=== PATIENT | female | born 1985 | race Caucasian/White ===

== ENCOUNTER 2017-02-05 14:49 | Emergency (ER) | payer OTHER ==
[~2017-02-05] VITALS: Ht 172.7 cm; Wt 113.4 kg
[2017-02-05] MEDS ORDERED: AMOX500T2 PO (15:18)
[2017-02-05] MEDS ORDERED: IBUP-2055 PO (15:18)
[2017-02-05] MEDS ORDERED: IBUPROFEN 800 MG (MOTRIN) TAB PO STA (15:29)
[2017-02-05] MEDS ORDERED: FLUCONAZOLE 150 MG TABLET (ED ONLY) PO STA (15:29)
[2017-02-05] MEDS ORDERED: cefTRIAXone 1 GM (ROCEPHIN) VIAL IM ONE (15:30)
[2017-02-05] MEDS ORDERED: LIDOCAINE 1% INJ 20 ML (XYLOCAINE) VIAL INJ ONE (15:30)
[2017-02-05] MEDS ORDERED: TRAM50TA2 PO (15:33)
[2017-02-05] MEDS ORDERED: FLUC100T6 PO (15:33)
[2017-02-05] MEDS ORDERED: CEFD300C3 PO (15:33)
[2017-02-05] MEDS ORDERED: NYST1000 PO (15:33)
--- NOTE | 2017-02-05 15:34 | ED EENT ---
History of Present Illness General Chief Complaint: Oral/Throat Problems Stated Complaint: STREP THROAT Nursing Triage Note: Ambulatory to ED 4 with reports of sore throat. Patient was seen at [facility] on Wednesday and diagnosed with strep, has been taking Amoxil and reports not feeling any better. Source: patient Exam Limitations: no limitations History of Present Illness Time seen by provider: 15:20 Initial Comments 31-year-old female patient presents to the emergency department complaints of sore throat. Was seen on Wednesday by [facility] and put on amoxicillin 500 mg twice a day for 7 days. Denies improvement in symptoms. Reports she is now having low-grade fevers and poor appetite. Timing/Duration: gradual Location: throat Prearrival Treatment: over the counter meds (400 mg motrin at 1100 today.) Modifying Factors: Worse With Other (worse with swallowing.) Allergies and Home Medications Allergies Coded Allergies: No Known Drug Allergies (Unverified , 02/05/17) Home Medications Amoxicillin 500 Mg Tablet, 500 MG PO BID for 7 Days, (Reported) Cefdinir 300 Mg Capsule, 300 MG PO BID, #14 Ref 0 Prescribed by: MARTELL SINGH on 02/05/17 1533 Fluconazole 100 Mg Tablet, 100 MG PO DAILY, #10 Ref 0 Prescribed by: MARTELL SINGH on 02/05/17 1533 Ibuprofen 200 Mg Tablet, 400 MG PO Q6H PRN for pain or fever, (Reported) Nystatin 100,000 Unit/1 Ml Oral.susp, 5 ML PO QID, #200 Ref 0 Prescribed by: MARTELL SINGH on 02/05/17 1533 Tramadol HCl 50 Mg Tablet, 50 MG PO Q4H PRN for pain, #14 Ref 0 Prescribed by: MARTELL SINGH on 02/05/17 1533 Review of Systems Constitutional: chills, fever, malaise Eyes: No Symptoms Reported Ears: No Symptoms Reported Nose: no symptoms reported Mouth: pain (tongue pain.), denies swelling Throat: see HPI, pain, swelling, denies neck stiffness, denies hoarse, denies aphonia, denies muffled, painful swallowing, denies difficulty with fluids Respiratory: no symptoms reported Cardiovascular: no symptoms reported Gastrointestinal: no symptoms reported Musculoskeletal: no symptoms reported Skin: no symptoms reported Neurological: No Symptoms Reported All Other Systems Reviewed Negative Unless Noted: Yes (Negative excepted noted.) Past Kxfkzpb-Qwrozn-Lsitpm Hx Patient Social History Alcohol Use: Denies Use Recreational Drug Use: No Smoking Status: Current Everyday Smoker Type Used: Cigarettes 2nd Hand Smoke Exposure: Yes Recent Foreign Travel: No Contact w/Someone Who Travel: No Recent Infectious Disease Expo: No Recent Hopitalizations: No Immunizations Up To Date Tetanus Booster (TDap): Less than 5yrs PED Vaccines UTD: Yes Seasonal Allergies Seasonal Allergies: No Surgeries HX Surgeries: Yes Surgeries: Section Respiratory Hx Respiratory Disorders: No Cardiovascular Hx Cardiac Disorders: No Neurological Hx Neurological Disorders: No Gastrointestinal Hx Gastrointestinal Disorders: No HEENT HX ENT Disorders: No Reviewed Nursing Assessment Reviewed/Agree w Nursing PMH: Yes Family Medical History Significant Family History: No Pertinent Family Hx Physical Exam Vital Signs Vital Sign - Last 12Hours 02/05/17 15:12 Temp 100.3 Pulse 99 Resp 16 B/P (MAP) 115/78 Pulse Ox 99 O2 Delivery Room Air General Appearance: WD/WN, no apparent distress Eyes: bilateral eye EOMI, bilateral eye PERRL, bilateral eye normal inspection Ears: bilateral ear TM normal, bilateral ear auricle normal, bilateral ear canal normal Nose: normal inspection Mouth/Throat: tonsillar exudate, tonsillar swelling, No trismus, No uvula swelling, No voice changes, other ((+) pharyngeal erythema. (+) candidiasis.) Neck: full range of motion, supple, lymphadenopathy (R) (ttp), lymphadenopathy (L) (ttp) Cardiovascular: regular rate, rhythm, no murmur Respiratory: lungs clear, normal breath sounds, no respiratory distress Neurologic/Psychiatric: alert, normal mood/affect, oriented x 3 Skin: normal color, warm/dry Progress/Results/Core Measures Results/Orders My Orders Orders - MARTELL SINGH Ceftriaxone Injection (Rocephin Injectio (02/05/17 15:30) Fluconazole Tablet (Ed Only) (Diflucan T (02/05/17 15:29) Ibuprofen Tablet (Motrin Tablet) (02/05/17 15:29) Lidocaine 1% Injection (Xylocaine 1% Inj (02/05/17 15:30) Medications Given in ED Current Medications Medications Dose Ordered Sig/Ricky Route Start Time Stop Time Status Last Admin Dose Admin Ceftriaxone Sodium 1,000 mg ONCE ONCE IM 02/05/17 15:30 02/05/17 15:31 DC 02/05/17 15:43 1,000 MG Lidocaine HCl 2.1 ml ONCE ONCE INJ 02/05/17 15:30 02/05/17 15:31 DC 02/05/17 15:43 2.1 ML Vital Signs/I&O Vital Sign - Last 12Hours 02/05/17 02/05/17 02/05/17 02/05/17 15:12 15:43 15:43 15:44 Temp 100.3 100.3 100.3 100.3 Pulse 99 Resp 16 B/P (MAP) 115/78 Pulse Ox 99 O2 Delivery Room Air Blood Pressure Mean: 90 Departure Communication Progress Notes Patient seen and evaluated. Patient given 1 g Rocephin, ibuprofen 800 mg, and Diflucan 300 mg in the ED. Patient instructed to discontinue the amoxicillin. Given prescriptions for nystatin swish and swallow, Omnicef, and tramadol for pain. Patient does report decreased infections with antibiotic use. She given a prescription for Diflucan. Impression Impression: Primary Impression: Streptococcal tonsillitis Additional Impression: Thrush, oral Disposition: 01 HOME, SELF-CARE Condition: Improved Departure-Patient Inst. Decision time for Depature: 15:30 Referrals: [facility] (PCP/Family) Primary Care Physician Patient Instructions: Strep Throat (DC), Thrush (DC) Add. Discharge Instructions: All discharge instructions reviewed with patient and/or family. Voiced understanding. Medications as instructed. Tylenol extra strength over-the- counter as directed for pain or fever. Ibuprofen 800 mg by mouth every 8 hours as needed for pain or fever. Push fluids. Warm salt water gargles. Follow-up with your family practitioner for recheck if needed. Return to the emergency department for worsened pain, swelling, difficulty swallowing, difficulty breathing, fever, or any other concerns. Scripts Fluconazole (Fluconazole) 100 Mg Tablet 100 MG PO DAILY, #10 TAB 0 Refills Prov: MARTELL SINGH 02/05/17 Nystatin (Nystatin) 100,000 Unit/1 Ml Oral.susp 5 ML PO QID, #200 ML 0 Refills Prov: MARTELL SINGH 02/05/17 Cefdinir (Cefdinir) 300 Mg Capsule 300 MG PO BID, #14 CAP 0 Refills Prov: MARTELL SINGH 02/05/17 Tramadol HCl (Tramadol HCl) 50 Mg Tablet 50 MG PO Q4H Y for pain, #14 TAB 0 Refills Prov: MARTELL SINGH 02/05/17 Work/School Note: Work Release Form Date Seen in the Emergency Department: February 05, 2017 Return to Work: February 06, 2017 Restrictions: Return-No Fever (24hrs) Copy Copies To 1: IRENE MENDES GRETCHEN L PA February 05, 2017 15:34
[2017-02-05 16:01] VITALS: BP 119/74
== END 2017-02-05 16:01 | disposition home or self-care (01) ==
LOC: ER 14:52
DX: J03.00 Acute streptococcal tonsillitis, unspecified (principal); B37.0 Candidal stomatitis; F17.210 Nicotine dependence, cigarettes, uncomplicated
CPT/HCPCS: 96372; 99282

== ENCOUNTER → 2019-06-08 | Outpatient (CLI) | payer OTHER ==
[~2019-06-08] MED LIST: AMOX500T2 PO; CEFD300C3 PO; FLUC100T6 PO; IBUP-2055 PO; NYST1000 PO; TRAM50TA2 PO
--- NOTE | 2019-06-08 16:30 | Diagnostic Imaging Report ---
INDICATION: Right shoulder pain. TIME OF EXAM: 1:35 p.m. FINDINGS: Three views of the right shoulder were obtained. Glenohumeral and acromioclavicular alignment is normal. Acromiohumeral space is normal. No fracture or dislocation is seen. IMPRESSION: No acute bony abnormality is detected. Dictated by: Dictated on workstation # [id number]
== END ==
LOC: RAD 12:43
PROVIDERS: ATTEND Nurse Practitioner Family
DX: M25.511 Pain in right shoulder (principal)
CPT/HCPCS: 73030

== ENCOUNTER → 2019-07-13 | Outpatient (CLI) | payer OTHER ==
--- NOTE | 2019-07-13 09:32 | Diagnostic Imaging Report ---
PROCEDURE: MRI right joint upper extremity without contrast. TECHNIQUE: Multiplanar, multisequence non contrast-enhanced MRI of the right upper extremity was accomplished. INDICATION: Right shoulder pain. COMPARISON: No prior MRI shoulder studies are available for comparison. FINDINGS: The biceps tendon is in a normal location within the bicipital groove. There are hypertrophic degenerative changes at the acromioclavicular joint. There is some edema in the acromion and distal clavicle. A small amount of fluid is identified within the subacromial-subdeltoid bursa. The subscapularis tendon of the rotator cuff is intact. The supraspinatus and infraspinatus tendons of the rotator cuff are intact. No definite tear or retraction is seen. There is a moderate amount of intermediate signal throughout the substance of the supraspinatus tendon consistent with tendinopathy. No joint effusion is identified. IMPRESSION: AC joint degenerative changes and rotator cuff tendinopathy. No definite rotator cuff tear is seen. There is also a small amount of fluid in the subacromial-subdeltoid bursa suggestive of mild bursitis. Dictated by: Dictated on workstation # [id number]
== END ==
LOC: RAD 08:03
PROVIDERS: ATTEND Family Medicine
DX: M19.012 Primary osteoarthritis, left shoulder (principal); M67.814 Other specified disorders of tendon, left shoulder
CPT/HCPCS: 73221

== ENCOUNTER 2020-07-22 09:26 | Emergency (ER) | payer OTHER ==
[~2020-07-22] VITALS: Ht 172.7 cm; Wt 118.8 kg
[~2020-07-22 09:26] MED LIST changes: -IBUP-2055 PO; +IBUP-2473 PO; -TRAM50TA2 PO; +TRM50T PO
[2020-07-22 09:48] LABS: BASOPHILS # (AUTO) 0.1 10^3/uL (0.0-0.1); BASOPHILS % (AUTO) 0 % (0-10); EOSINOPHILS % (AUTO) 0 % (0-10); HEMATOCRIT 43 % (35-52); HEMOGLOBIN 14.3 g/dL (11.5-16.0); LYMPHOCYTES # (AUTO) 2.9 10^3/uL (1.0-4.0); LYMPHOCYTES % (AUTO) 21 % (12-44); MEAN CORPUSCULAR HEMOGLOBIN 31 pg (25-34); MEAN CORPUSCULAR HGB CONC 33 g/dL (32-36); MEAN CORPUSCULAR VOLUME 94 fL (80-99); MEAN PLATELET VOLUME 8.8 fL (9.0-12.2); MONOCYTES # (AUTO) 0.9 10^3/uL (0.0-1.0); MONOCYTES % (AUTO) 6 % (0-12); NEUTROPHILS % (AUTO) 72 % (42-75); PLATELET COUNT 292 10^3/uL (130-400); WHITE BLOOD COUNT 13.8 10^3/uL (4.3-11.0)
[2020-07-22 10:06] LABS: FIBRIN DEGRADATION PRODUCTS 0.36 UG/ML (0.00-0.49); INR 0.9 (0.8-1.4); PROTHROMBIN TIME PATIENT 12.6 SEC (12.2-14.7)
[2020-07-22 10:09] LABS: CHLORIDE 108 MMOL/L (98-107); POTASSIUM 4.3 MMOL/L (3.6-5.0); SODIUM 139 MMOL/L (135-145)
[2020-07-22 10:10] LABS: CALCIUM 8.9 MG/DL (8.5-10.1)
[2020-07-22 10:11] LABS: GLUCOSE 98 MG/DL (70-105)
[2020-07-22 10:12] LABS: CARBON DIOXIDE 22 MMOL/L (21-32)
[2020-07-22 10:13] LABS: BILIRUBIN,TOTAL 0.4 MG/DL (0.1-1.0)
[2020-07-22 10:15] LABS: ALKALINE PHOSPHATASE 61 U/L (40-136); GFR ESTIMATED > 60
[2020-07-22 10:16] LABS: BUN/CREATININE RATIO 17
[2020-07-22 10:18] LABS: ALANINE AMINOTRANSFERASE 12 U/L (0-55)
[2020-07-22 10:19] LABS: BILIRUBIN,URINE NEGATIVE (NEGATIVE); CLARITY,URINE CLEAR; COLOR,URINE YELLOW; GLUCOSE, URINE (UA) NEGATIVE (NEGATIVE); KETONES,URINE NEGATIVE (NEGATIVE); LEUKOCYTE ESTERASE ,URINE NEGATIVE (NEGATIVE); NITRITE,URINE NEGATIVE (NEGATIVE); PROTEIN,URINE NEGATIVE (NEGATIVE)
--- NOTE | 2020-07-22 10:25 | Diagnostic Imaging Report ---
Indication: Right upper extremity weakness and facial droop Single AP view of the chest is obtained. COMPARISON: No previous study is available for comparison at this time. FINDINGS: Heart size and pulmonary vasculature are within normal limits, and the lungs are clear, bilaterally. IMPRESSION: Unremarkable chest. Dictated by: Dictated on workstation # [id number]
[2020-07-22 10:27] LABS: BACTERIA,URINE TRACE /HPF; WBC,URINE RARE /HPF
--- NOTE | 2020-07-22 10:27 | Diagnostic Imaging Report ---
PROCEDURE: CT head wo r/o stroke. TECHNIQUE: Multiple contiguous axial images were obtained through the brain without the use of intravenous contrast. Auto Exposure Controls were utilized during the CT exam to meet ALARA standards for radiation dose reduction. INDICATION: Right facial droop with right upper extremity paresthesia and dizziness CT HEAD: CT images of the head were obtained. FINDINGS: Ventricles and sulci are within normal limits for size. There is no intracranial hemorrhage identified. There is no abnormal mass effect or shift of midline structures. IMPRESSION: Unremarkable CT of the head. Dictated by: Dictated on workstation # [id number]
[2020-07-22 10:33] LABS: AMPHETAMINE SCREEN, URINE NEGATIVE (NEGATIVE); BARBITURATE SCREEN URINE NEGATIVE (NEGATIVE); BENZODIAZEPINES SCREEN URINE NEGATIVE (NEGATIVE); CANNABINOID SCREEN, URINE POSITIVE (NEGATIVE); COCAINE SCREEN URINE NEGATIVE (NEGATIVE); METHADONE STAT NEGATIVE (NEGATIVE); METHAMPHETAMINE SCREEN URINE S NEGATIVE (NEGATIVE); OPIATE SCREEN URINE NEGATIVE (NEGATIVE); OXYCODONE STAT NEGATIVE (NEGATIVE); PROPOXYPHENE STAT NEGATIVE (NEGATIVE); TRICYCLIC ANTIDEPRESSANTS SCRE NEGATIVE (NEGATIVE)
[2020-07-22 10:39] LABS: TSH (THYROID ANALYZER) 1.26 UIU/ML (0.35-4.94)
[2020-07-22] MEDS ORDERED: NS 100 ML (IVPB) BAG IV ONE (10:45)
[2020-07-22] MEDS ORDERED: HOLD METFORMIN - RECEIVED CONTRAST 20 ML VIAL IV SCH (10:45)
[2020-07-22] MEDS ORDERED: IOHEXOL 350 MG/ML 100 ML (OMNIPAQUE 350) VIAL IV ONE (10:45)
--- NOTE | 2020-07-22 11:12 | Diagnostic Imaging Report ---
PROCEDURE: CT angiography of the head and CT angiography of the neck with and without contrast. TECHNIQUE: Contiguous noncontrast images were obtained from the skull base through the vertex. After intravenous contrast administration, helical CT angiography of the neck was performed. Source data was reformatted into 3D MIP projections. Delayed post contrast acquisition was also obtained. Auto Exposure Controls were utilized during the CT exam to meet ALARA standards for radiation dose reduction. INDICATION: Right facial droop. FINDINGS: The delayed post contrast images through the brain are without abnormal enhancing lesion. The CT angiographic portion of the exam demonstrates a three-vessel branching pattern to the aortic arch. Both common carotid arteries are widely patent. The carotid bifurcations are unremarkable. The internal carotid arteries appear to be widely patent. The M1 and M2 branches of the middle cerebral arteries appear to be widely patent. No filling defect or thromboembolism is detected. The bilateral anterior cerebral arteries appear to be patent. The bilateral posterior cerebral arteries appear patent. The basilar is unremarkable. The vertebral arteries are codominant. No stenosis or occlusion is detected. IMPRESSION: Unremarkable CT angiogram of the head and neck. No definite filling defect or large branch occlusion is identified. Dictated by: Dictated on workstation # [id number]
--- NOTE | 2020-07-22 11:24 | ED Neurological Problem ---
General Chief Complaint: Neurological Problems Stated Complaint: STROKE LIKE SYMPTOMS Nursing Triage Note: PT TO ROOM 02 VIA W/C WITH C/O RIGHT HAND WEAKNESS AND RIGHT SIDE FACIAL DROOP STARTING YESTERDAY MORNING. PT SENT OVER FROM PCP. PT REPORTS HAVING FLUID BEHIND THE EAR LAST WEEK. Nursing Sepsis Screen: No Definite Risk Source: patient History of Present Illness Date Seen by Provider: Jul 22, 2020 Time Seen by Provider: 09:34 Initial Comments PT ARRIVES VIA POV--STATES SHE WAS SENT HER BY DR. GREGG STATES SHE WOKE UP YESTERDAY MORNING WITH RIGHT SIDED FACIAL DROOP STATES RIGHT SIDE OF FACE FEELS NUMB, DOES THE RIGHT POSTERIOR ASPECT OF HER TONGUE HAS HAD PAIN TO RIGHT TMJ AREA, TO RIGHT POST-AURICULAR AREA AND IN RIGHT EAR. NO CHANGE IN HEARING THOUGHT MAYBE HER RIGHT HAND FELT A LITTLE WEAK, BUT NOT NOW. NO PARESTHESIAS TO HAND NO VISION CHANGE NO HEADACHE NO NAUSEA/VOMITING NO FACIAL PAIN NO PROBLEMS TALKING NO DIZZINESS NO FEVER OR RECENT ILLNESS WAS SEEN BY DR. 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 NO INJURY STATES STORE HAS BEEN CLOSED FOR 4 WEEKS FOR REMODELING, AND RE-OPENED YESTERDAY PCP: DR. GREGG Allergies and Home Medications Allergies Coded Allergies: No Known Drug Allergies (Unverified , 02/05/17) Home Medications Amoxicillin 500 Mg Tablet, 500 MG PO BID, (Reported) Cefdinir 300 Mg Capsule, 300 MG PO BID Prescribed by: MARTELL SINGH on 02/05/17 153 Fluconazole 100 Mg Tablet, 100 MG PO DAILY Prescribed by: MARTELL SINGH on 02/05/17 153 Ibuprofen 200 Mg Tablet, 400 MG PO Q6H PRN for pain or fever, (Reported) Nystatin 100,000 Unit/1 Ml Oral.susp, 5 ML PO QID Prescribed by: MARTELL SINGH on 02/05/17 153 Prednisone 10 Mg Tab.ds.pk, 10 MG PO DAILY Take 6 tabs(60mg)daily,decrease by 1 tab(10MG)daily. Prescribed by: CRUZ FLOOD on 07/22/20 1129 Tramadol HCl 50 Mg Tablet, 50 MG PO Q4H PRN for pain Prescribed by: MARTELL SINGH on 02/05/17 1533 Valacyclovir HCl 1,000 Mg Tablet, 1,000 MG PO TIDAC Prescribed by: CRUZ FLOOD on 07/22/20 1129 Patient Home Medication List Home Medication List Reviewed: Yes Review of Systems Review of Systems Constitutional: no symptoms reported; No chills, No diaphoresis, No dizziness, No fever, No malaise, No weakness Eyes: No Symptoms Reported; Denies Blurred Vision Ears, Nose, Mouth, Throat: see HPI, ear pain; denies throat pain, denies throat swelling Respiratory: no symptoms reported Cardiovascular: no symptoms reported Gastrointestinal: no symptoms reported Genitourinary: no symptoms reported LMP: Jun 21, 2020 Musculoskeletal: No back pain, No neck pain Skin: no symptoms reported; No rash Psychiatric/Neurological: See HPI; Denies Cognitive Dysfunction, Denies Headache; Numbness, Weakness Endocrine: No Symptoms Reported Hematologic/Lymphatic: No Symptoms Reported Past Uczbwjx-Upxtyq-Dawiea Hx Past Med/Social Hx: Reviewed and Corrections made Patient Social History Alcohol Use: Occasionally Uses Alcohol Beverage of Choice: Beer Recreational Drug Use: Yes (THC) Drug of Choice: THC Smoking Status: Current Everyday Smoker (1 PPD) Type Used: Cigarettes (1 PPD) 2nd Hand Smoke Exposure: Yes Recent Foreign Travel: No Contact w/Someone Who Travel: No Recent Infectious Disease Expo: No Recent Hopitalizations: No Physical Abuse: No Sexual Abuse: No Mistreated: No Fear: No Immunizations Up To Date Tetanus Booster (TDap): Less than 5yrs PED Vaccines UTD: Yes Seasonal Allergies Seasonal Allergies: No Past Medical History Surgeries: Yes ( X 2--LAST ONE 2007) Section Respiratory: No Cardiac: Yes High Cholesterol Neurological: No Reproductive Disorders: Yes (IRREGULAR PERIODS) Female Reproductive Disorders: Menstrual Problems Genitourinary: No Gastrointestinal: No Musculoskeletal: No Endocrine: No HEENT: No Cancer: No Psychosocial: No Integumentary: No Blood Disorders: No Family Medical History No Pertinent Family Hx Physical Exam Vital Signs Vital Signs - First Documented 07/22/20 07/22/20 09:30 11:34 Temp 36.3 Pulse 73 Resp 18 B/P (MAP) 144/94 (111) Pulse Ox 98 O2 Delivery Room Air Capillary Refill : Less Than 3 Seconds Height, Weight, BMI Height: 5'8.00" Weight: 250lbs. oz. 113.372063de; 39.00 BMI Method:Stated General Appearance: WD/WN, no apparent distress, other (SPEECH CLEAR AND GAIT STEADY) HEENT: PERRL/EOMI, TMs normal, pharynx normal Neck: non-tender, full range of motion, supple, normal inspection Respiratory: normal breath sounds, no respiratory distress, no accessory muscle use Cardiovascular: regular rate, rhythm Peripheral Pulses: 2+ Dorsalis Pedis (R), 2+ Left Dors-Pedis (L), 2+ Radial Pulses (R), 2+ Radial Pulses (L) Gastrointestinal: normal bowel sounds, non tender, soft Back: normal inspection Extremities: normal inspection, normal capillary refill Neurologic/Psychiatric: alert, normal mood/affect, oriented x 3; No aphasia; facial droop (RIGHT FACIAL DROOP, WITH FOREHEAD INVOLVEMENT. PT IS ABLE TO CLOSE RIGHT EYE AND NO EXCESSIVE TEARING. . TONGUE IS MIDLINE. DOES HAVE SOME SENSATION TO TOUCH TO RIGHT SIDE OF FACE. ) Crainal Nerves: normal hearing, normal speech, PERRL Coordination/Gait: normal finger to nose, normal gait, negative Romberg's sign Motor/Sensory: no pronator drift Skin: normal color, warm/dry; No rash Stroke Onset of Symptoms Symptoms onset unknown: Yes NIH Stroke Scale Assessment Select: Initial Level of Consciousness: 0=Alert (0), Level of Consciousness- Questions: 0=Answers both month/age (0), LOC Commands: 0=Performs both tasks (0), Gaze: Normal (0), Visual Marcano: 0=No visual loss (0), Facial Movement (Facial Paresis): 3=Complete paralysis (3), Motor Function-Arms Right: 0=No drift (0), Motor Function-Arms Left: 0=No drift (0), Motor Function-Legs Right: 0=No drift (0), Motor Function-Legs Left: 0=No drift (0), Limb Ataxia: 0=Absent (0), Sensory: 0=Normal:no loss (0), Best Language: 0=No aphasia (0), Dysarthria: 0=Normal (0), Extinction & Inattention: 0=No abnormality (0), Total: 3 Stroke Thrombolytic Exclusion Age 18 or Over: Yes Acute intenal hemorrhage: No History of CVA: No Uncontrolled Coagulation Defec: No Intracranial Hemorrhage: No Severe Hypertension: No GI or Bleed: No Subarachnoid Hemorrhage: No Intracranial Neoplasm/Aneurysm: No Oral Anticoagulants: No Surgery or Trauma: No Puncture of Non-Compressible V: No Recent CPR: No Diabetic Hemorrhagic Retinopat: No Organ Biopsy: No Recent Obstetric Delivery: No Glucose: No Significant Hepatic Dysfunctio: No NIH Stoke Scale >22: No Bacterial Endocarditis: No Pericarditis: No Improving Symptoms: No Platelets: No TPA Contraindication: No IV - TPa Received IV - TPa Procedure Performed?: No (NIH IS 3 AND SYMPTOMS ONGOING FOR > 24 HOURS AND APPEARS TO BE SALVADOR'S PALSY-NOT CVA) Progress/Results/Core Measures Results/Orders Lab Results Laboratory Tests Test 07/22/20 09:37 07/22/20 09:40 07/22/20 10:13 Range/Units Glucometer 96 70-110 MG/DL White Blood Count 13.8 H 4.3-11.0 10^3/uL Red Blood Count 4.58 3.80-5.11 10^6/uL Hemoglobin 14.3 11.5-16.0 g/dL Hematocrit 43 35-52 % Mean Corpuscular Volume 94 80-99 fL Mean Corpuscular Hemoglobin 31 25-34 pg Mean Corpuscular Hemoglobin Concent 33 32-36 g/dL Red Cell Distribution Width 13.6 10.0-14.5 % Platelet Count 292 130-400 10^3/uL Mean Platelet Volume 8.8 L 9.0-12.2 fL Immature Granulocyte % (Auto) 1 % Neutrophils (%) (Auto) 72 42-75 % Lymphocytes (%) (Auto) 21 12-44 % Monocytes (%) (Auto) 6 0-12 % Eosinophils (%) (Auto) 0 0-10 % Basophils (%) (Auto) 0 0-10 % Neutrophils # (Auto) 10.0 H 1.8-7.8 10^3/uL Lymphocytes # (Auto) 2.9 1.0-4.0 10^3/uL Monocytes # (Auto) 0.9 0.0-1.0 10^3/uL Eosinophils # (Auto) 0.0 0.0-0.3 10^3/uL Basophils # (Auto) 0.1 0.0-0.1 10^3/uL Immature Granulocyte # (Auto) 0.1 0.0-0.1 10^3/uL Prothrombin Time 12.6 12.2-14.7 SEC INR Comment 0.9 0.8-1.4 Activated Partial Thromboplast Time 32 24-35 SEC D-Dimer 0.36 0.00-0.49 UG/ML Sodium Level 139 135-145 MMOL/L Potassium Level 4.3 3.6-5.0 MMOL/L Chloride Level 108 H 98-107 MMOL/L Carbon Dioxide Level 22 21-32 MMOL/L Anion Gap 9 5-14 MMOL/L Blood Urea Nitrogen 10 7-18 MG/DL Creatinine 0.60 0.60-1.30 MG/DL Estimat Glomerular Filtration Rate > 60 BUN/Creatinine Ratio 17 Glucose Level 98 70-105 MG/DL Calcium Level 8.9 8.5-10.1 MG/DL Corrected Calcium 8.9 8.5-10.1 MG/DL Magnesium Level 2.0 1.6-2.4 MG/DL Total Bilirubin 0.4 0.1-1.0 MG/DL Aspartate Amino Transf (AST/SGOT) 13 5-34 U/L Alanine Aminotransferase (ALT/SGPT) 12 0-55 U/L Alkaline Phosphatase 61 40-136 U/L Myoglobin 25.9 10.0-92.0 NG/ML Troponin I < 0.028 <0.028 NG/ML Total Protein 7.0 6.4-8.2 GM/DL Albumin 4.0 3.2-4.5 GM/DL TSH [place] Testing 1.26 0.35-4.94 UIU/ML Serum Test, Qualitative NEGATIVE NEGATIVE Serum Alcohol < 10 <10 MG/DL Urine Color YELLOW Urine Clarity CLEAR Urine pH 6.0 5-9 Urine Specific [place] 1.015 L 1.016-1.022 Urine Protein NEGATIVE NEGATIVE Urine Glucose (UA) NEGATIVE NEGATIVE Urine Ketones NEGATIVE NEGATIVE Urine Nitrite NEGATIVE NEGATIVE Urine Bilirubin NEGATIVE NEGATIVE Urine Urobilinogen 0.2 < = 1.0 MG/DL Urine Leukocyte Esterase NEGATIVE NEGATIVE Urine RBC (Auto) NEGATIVE NEGATIVE Urine RBC NONE /HPF Urine WBC RARE /HPF Urine Squamous Epithelial Cells 5-10 /HPF Urine Crystals NONE /LPF Urine Bacteria TRACE /HPF Urine Casts NONE /LPF Urine Mucus NEGATIVE /LPF Urine Culture Indicated NO Urine Opiates Screen NEGATIVE NEGATIVE Urine Oxycodone Screen NEGATIVE NEGATIVE Urine Methadone Screen NEGATIVE NEGATIVE Urine Propoxyphene Screen NEGATIVE NEGATIVE Urine Barbiturates Screen NEGATIVE NEGATIVE Ur Tricyclic Antidepressants Screen NEGATIVE NEGATIVE Urine Phencyclidine Screen NEGATIVE NEGATIVE Urine Amphetamines Screen NEGATIVE NEGATIVE Urine Methamphetamines Screen NEGATIVE NEGATIVE Urine Benzodiazepines Screen NEGATIVE NEGATIVE Urine Cocaine Screen NEGATIVE NEGATIVE Urine Cannabinoids Screen POSITIVE H NEGATIVE My Orders Orders - ALEENARONALDO BernabeA Pradip DO Cbc With Automated Diff (07/22/20:38) Protime With Inr (07/22/20:38) Partial Thromboplastin Time (07/22/20:38) Comprehensive Metabolic Panel (07/22/20:) Fibrin Degradation Products (07/22/20:38) Troponin I (07/22/20:) Hcg,Qualitative Serum (07/22/20:38) Ua Culture If Indicated (07/22/20:38) Chest 1 View, Ap/Pa Only (07/22/20:38) Ekg Tracing (07/22/20:38) Accucheck Stat ONCE (07/22/20 09:38) Ed Iv/Invasive Line Start (07/22/20:38) Ed Iv/Invasive Line Start (07/22/20:38) Vital Signs Stroke Patient Q15M (07/22/20 09:38) Ct Head Wo-R/O Stroke (07/22/20 09:38) O2 (07/22/20:38) Intake & Output 06,14,22 (07/22/20:38) Monitor-Rhythm Ecg Trace Only (07/22/20:38) Dysphagia Screening Tool (07/22/20 09:38) Alcohol (07/22/20 09:38) Drug Screen Stat (Urine) (07/22/20:38) Magnesium (07/22/20:38) Thyroid Analyzer (07/22/20:38) Myoglobin Serum (07/22/20 09:38) Ct Angio Head/Neck (07/22/20 10:35) Iohexol Injection (Omnipaque 350 Mg/Ml 1 (07/22/20 10:45) Received Contrast (Hold Metformin- Contr (07/22/20 10:45) Ns (Ivpb) (Sodium Chloride 0.9% Ivpb Bag (07/22/20 10:45) Medications Given in ED Current Medications Medications Dose Ordered Sig/Ricky Route Start Time Stop Time Status Last Admin Dose Admin Iohexol 100 ml ONCE ONCE IV 07/22/20 10:45 07/22/20 10:46 DC 07/22/20 11:01 75 ML Sodium Chloride 100 ml ONCE ONCE IV 07/22/20 10:45 07/22/20 10:46 DC 07/22/20 11:01 80 ML Vital Signs/I&O 07/22/20 07/22/20 09:30 11:34 Temp 36.3 Pulse 73 64 Resp 18 17 B/P (MAP) 144/94 (111) 153/103 Pulse Ox 98 O2 Delivery Room Air Room Air Blood Pressure Mean: 111 FSBG Bedside Testing Finger Stick Blood Glucose: 96 Blood Glucose Action Taken: PROVIDER NOTIFIED Progress Progress Note : Progress Note NO DETERIORATION IN PT'S CONDITION DURING ER STAY Initial ECG Impression Date: Jul 22, 2020 Initial ECG Impression Time: 09:32 Initial ECG Rate: 68 Initial ECG Rhythm: Normal Sinus Diagnostic Imaging Comments CT ANGIOGRAM HEAD/NECK--PER RADIOLOGIST REPORT AT 1125 MPRESSION: Unremarkable CT angiogram of the head and neck. No definite filling defect or large branch occlusion is identified. Reviewed: Reviewed by Me Departure Impression Primary Impression: Right-sided Salvador's palsy Disposition: 01 HOME, SELF-CARE Condition: Stable Departure-Patient Inst. Referrals: AFTAB GREGG DO (PCP/Family) Primary Care Physician Patient Instructions: Salvador's Palsy (DC) Add. Discharge Instructions: USE ARTIFICIAL TEARS NEEDED SOFT FOODS FOLLOW UP WITH DR. GREGG IN 4-5 DAYS FOR FURTHER CARE All discharge instructions reviewed with patient and/or family. Voiced understanding. Scripts Prednisone (Prednisone) 10 Mg Tab.ds.pk 10 MG PO DAILY, #21 EA Take 6 tabs(60mg)daily,decrease by 1 tab(10MG)daily. Prov: CRUZ FLOOD DO 07/22/20 Valacyclovir HCl (Valtrex) 1,000 Mg Tablet 1000 MG PO TIDAC, #30 TAB Prov: CRUZ FLOOD DO 07/22/20 CRUZ FLOOD DO Jul 22, 2020 11:24
[2020-07-22] MEDS ORDERED: PRED10TA22 PO (11:29)
[2020-07-22] MEDS ORDERED: VALA10004 PO (11:29)
[2020-07-22 11:34] VITALS: BP 153/103
== END 2020-07-22 11:35 | disposition home or self-care (01) ==
LOC: EDUNIT# 09:26 → ER 09:27
DX: G51.0 Bell's palsy (principal); F17.210 Nicotine dependence, cigarettes, uncomplicated; Z79.52 Long term (current) use of systemic steroids
CPT/HCPCS: 70450; 70496; 70498; 71045; 80053; 80306; 81000; 82962; 83735; 83874; 84443; 84484; 84703; 85025; 85379; 85610; 85730; 93005; 93041; 99284; G0480; 36415; 80320